=== PATIENT | female | born 1975 | race Caucasian/White ===

== ENCOUNTER → 2022-08-31 | Outpatient (CLI) | payer OTHER | END | disposition home or self-care (01) | LOC: RAD 12:39 | PROVIDERS: ATTEND Orthopaedic Surgery | DX: M76.892 Other specified enthesopathies of left lower limb, excluding foot (principal); M19.072 Primary osteoarthritis, left ankle and foot; M19.071 Primary osteoarthritis, right ankle and foot; M20.12 Hallux valgus (acquired), left foot; M20.11 Hallux valgus (acquired), right foot; M77.31 Calcaneal spur, right foot ==